=== PATIENT | female | born 1950 | race Caucasian/White ===

== ENCOUNTER 2019-08-19 15:56 | Emergency (ER) | payer MEDICARE ==
[~2019-08-19] VITALS: Ht 30.5 cm; Wt 55.0 kg
[~2019-08-19 15:56] MED LIST: ALB0.5UD IH; CITA20TA28 PO; CLOP75TA15 PO; COL100C PO; COR3.125T PO; CYAN-51 PO; CYCL-1 PO; DOL10T; FAMO20TA8 PO; GABA-341 PO; LOSA50TA64 PO; MAGN400C PO; OMEG500C PO; PRAV40TA65 PO; RANO500T3 PO
--- NOTE | 2019-08-19 16:16 | NUR ---
awaiting ed provider.
[2019-08-19] MEDS ORDERED: ibuprofen 200mg tablet PO ONE (16:35)
[2019-08-19] MEDS ORDERED: acetaminophen 325mg tablet PO ONE ×2 (16:35→16:45)
[2019-08-19 16:52] VITALS: BP 159/67
== END 2019-08-19 16:55 | disposition home or self-care (01) ==
LOC: ER 15:57
DX: M25.531 Pain in right wrist (principal); I25.10 Atherosclerotic heart disease of native coronary artery without angina pectoris; I10 Essential (primary) hypertension; J44.9 Chronic obstructive pulmonary disease, unspecified; M79.7 Fibromyalgia; Z95.1 Presence of aortocoronary bypass graft; Z90.710 Acquired absence of both cervix and uterus; Z98.890 Other specified postprocedural states; Z88.1 Allergy status to other antibiotic agents; Z88.8 Allergy status to other drugs, medicaments and biological substances; Z79.899 Other long term (current) drug therapy; W18.09XA Striking against other object with subsequent fall, initial encounter; Y93.01 Activity, walking, marching and hiking; Y92.89 Other specified places as the place of occurrence of the external cause; Y99.9 Unspecified external cause status
CPT/HCPCS: 29125; 73110; 99284

== ENCOUNTER 2020-01-10 09:25 | Inpatient (IN) | payer MEDICARE ==
[~2020-01-10] VITALS: Ht 154.9 cm; Wt 64.0 kg
[~2020-01-10 09:25] MED LIST changes: -DOL10T; +DOL10T PO
[2020-01-10] MEDS ORDERED: CefTRIAXone 2gm/D5W 50ml 50 ML IV ONE (09:40)
[2020-01-10] MEDS ORDERED: normal saline 1000ML IV soln IV ONE (09:40)
[2020-01-10] MEDS ORDERED: methylPREDNISolone sod succ 125mg/2ml vial IV ONE (09:40)
[2020-01-10] MEDS ORDERED: albuterol 2.5 MG/3 ML nebule NEB ONE (09:40)
--- NOTE | 2020-01-10 09:48 | NUR ---
RT AT BEDSIDE
[2020-01-10 09:50] LABS: BASOPHILS % (AUTO) 0.2 % (0-1); EOSINOPHILS % (AUTO) 0.1 % (0-6); HEMATOCRIT 43.4 % (35.0-45.0); HEMOGLOBIN 14.6 g/dl (12.0-16.0); LYMPHOCYTES # (AUTO) 0.6 X10'3 (1.1-4.8); LYMPHOCYTES % (AUTO) 7.9 % (21-51); MEAN CORPUSCULAR HEMOGLOBIN 31.7 PG (27.0-31.0); MEAN CORPUSCULAR HGB CONC 33.6 g/dL (33.0-36.5); MEAN CORPUSCULAR VOLUME 94.1 FL (78-98); MEAN PLATELET VOLUME 8.9 FL (7.4-10.4); MONOCYTES # (AUTO) 0.4 X10'3 (0-0.9); MONOCYTES % (AUTO) 5.4 % (2-12); NEUTROPHILS # (AUTO) 6.6 X10'3 (1.8-7.7); NEUTROPHILS % (AUTO) 86.4 % (42-75); PLATELET COUNT 102 X10'3 (140-440); RED BLOOD COUNT 4.61 X10'6 (4.20-5.60); RED CELL DISTRIBUTION WIDTH 13.2 % (11.5-14.5); WHITE BLOOD COUNT 7.6 X10'3 (4.5-11.0)
[2020-01-10 10:12] LABS: ALANINE AMINOTRANSFERASE 34 U/L (12-78); ALBUMIN 3.4 G/DL (3.4-5.0); ALBUMIN/GLOBULIN RATIO 0.9 (1.1-1.5); ALKALINE PHOSPHATASE 106 IU/L (46-116); ANION GAP 6 (8-16); ASPARTATE AMINO TRANSFERASE 36 U/L (10-37); BILIRUBIN,TOTAL 0.6 MG/DL (0.1-1.0); BLOOD UREA NITROGEN 13 MG/DL (7-18); BUN/CREATININE RATIO 14.6 (6.6-38.0); CALCIUM 9.1 MG/DL (8.5-10.1); CHLORIDE 105 MMOL/L (99-107); CREATININE 0.89 MG/DL (0.40-0.90); GLUCOSE 137 MG/DL (70-104); POTASSIUM 4.1 MMOL/L (3.5-5.1); SODIUM 140 MMOL/L (135-145); TOTAL CARBON DIOXIDE 28.8 MMOL/L (24-32); TOTAL PROTEIN 7.1 G/DL (6.4-8.2); eGFR 62 ML/MIN
[2020-01-10] MEDS ORDERED: ipratropium/albuterol 3ml nebule NEB ONE (10:55)
[2020-01-10] MEDS ORDERED: MONT10TA26 PO (13:19)
[2020-01-10] MEDS ORDERED: CARV25TA2 PO (13:19)
[2020-01-10] MEDS ORDERED: GABA-532 PO (13:19)
[2020-01-10] MEDS ORDERED: LOSA25TA41 PO (13:19)
[2020-01-10] MEDS ORDERED: DOCU250C40 PO (13:19)
[2020-01-10] MEDS ORDERED: ISOS60TA4 PO (13:19)
[2020-01-10] MEDS ORDERED: ASPI-1053 PO (13:19)
[2020-01-10] MEDS ORDERED: LOVA40TA2 PO (13:19)
[2020-01-10] MEDS ORDERED: ondansetron/PF 4mg/2ml inj IV PRN (13:45)
[2020-01-10] MEDS ORDERED: magnesium hydroxide 30ml (MOM) UD suspension PO PRN (13:45)
[2020-01-10] MEDS ORDERED: acetaminophen 325mg tablet PO PRN (13:45)
[2020-01-10] MEDS ORDERED: mag hydrox/Alum hydrox/simeth 30ml oral suspension PO PRN (13:45)
[2020-01-10] MEDS: methylPREDNISolone sod succ 125mg/2ml vial IV SCH ×2 (14:14→19:47)
[2020-01-10 15:52] VITALS: BP 160/64
--- NOTE | 2020-01-10 15:54 | NUR ---
Received report from NIDIA Hendricks. Patient arrived to floor. VSS. no current complaints.
[2020-01-10] MEDS: ipratropium/albuterol 3ml nebule NEB SCH ×3 (16:34→23:00)
--- NOTE | 2020-01-10 17:47 | NUR ---
PAGER ID: [phone] MESSAGE: Diane Partida : please address home medications. patient says she takes protonix PO daily and is needing it now. thank you!
--- NOTE | 2020-01-10 18:30 | NUR ---
Patient in room [facility]. I have received report from Ines JAOCB and had the opportunity to ask questions and assume patient care.
--- NOTE | 2020-01-10 18:35 | NUR ---
Problems reprioritized. Patient report given, questions answered & plan of care reviewed with NIDIA HOUSE.
[2020-01-10] MEDS: lactobacillus rhamnosus 10,000 MMU CELLS/CAPSULE PO SCH (19:45)
[2020-01-10] MEDS: magnesium oxide 400mg tablet PO SCH (19:45)
[2020-01-10] MEDS: carVEDilol 12.5mg tablet PO SCH (19:48)
[2020-01-10 20:00] VITALS: BP 160/56
[2020-01-10] MEDS: heparin, porcine 5000 units/ml vial SQ SCH (20:00)
[2020-01-10] MEDS: docusate sod 250mg capsule PO SCH (21:06)
[2020-01-10] MEDS: OMEGA-3/DHA/EPA/FISH OIL 1 EACH CAPSULE.DR PO SCH (21:06)
[2020-01-10] MEDS: methadone 5mg tablet PO SCH (21:07)
[2020-01-10] MEDS: gabapentin 300mg capsule PO SCH (21:09)
[2020-01-10] MEDS: azithromycin 250mg tablet PO SCH (21:09)
[2020-01-11] VITALS: BP 142/60
[2020-01-11] MEDS: methylPREDNISolone sod succ 125mg/2ml vial IV SCH ×4 (02:08→20:29)
[2020-01-11] MEDS: ipratropium/albuterol 3ml nebule NEB SCH ×6 (03:54→23:01)
[2020-01-11 05:27] LABS: BASOPHILS % (AUTO) 0.1 % (0-1); EOSINOPHILS % (AUTO) 0 % (0-6); HEMATOCRIT 41.6 % (35.0-45.0); HEMOGLOBIN 13.9 g/dl (12.0-16.0); LYMPHOCYTES # (AUTO) 0.6 X10'3 (1.1-4.8); LYMPHOCYTES % (AUTO) 9.1 % (21-51); MEAN CORPUSCULAR HEMOGLOBIN 31.4 PG (27.0-31.0); MEAN CORPUSCULAR HGB CONC 33.3 g/dL (33.0-36.5); MEAN CORPUSCULAR VOLUME 94.5 FL (78-98); MEAN PLATELET VOLUME 9.5 FL (7.4-10.4); MONOCYTES # (AUTO) 0.2 X10'3 (0-0.9); MONOCYTES % (AUTO) 2.4 % (2-12); NEUTROPHILS # (AUTO) 6.1 X10'3 (1.8-7.7); NEUTROPHILS % (AUTO) 88.4 % (42-75); PLATELET COUNT 110 X10'3 (140-440); RED BLOOD COUNT 4.41 X10'6 (4.20-5.60); RED CELL DISTRIBUTION WIDTH 13.3 % (11.5-14.5); WHITE BLOOD COUNT 6.9 X10'3 (4.5-11.0)
[2020-01-11 05:59] LABS: ALBUMIN 2.9 G/DL (3.4-5.0); ANION GAP 6 (8-16); BLOOD UREA NITROGEN 12 MG/DL (7-18); BUN/CREATININE RATIO 17.1 (6.6-38.0); CALCIUM 8.5 MG/DL (8.5-10.1); CHLORIDE 106 MMOL/L (99-107); GLUCOSE 164 MG/DL (70-104); POTASSIUM 3.9 MMOL/L (3.5-5.1); SODIUM 140 MMOL/L (135-145); TOTAL CARBON DIOXIDE 28.1 MMOL/L (24-32); eGFR 82 ML/MIN
--- NOTE | 2020-01-11 06:28 | NUR ---
Problems reprioritized. Patient report given, questions answered & plan of care reviewed with Daxa JACOB.
[2020-01-11 07:45] VITALS: BP 153/60
[2020-01-11] MEDS: CefTRIAXone 2gm/D5W 50ml 50 ML IV SCH (07:47)
[2020-01-11] MEDS: aspirin 81mg tab.chew PO SCH (07:47)
[2020-01-11] MEDS: docusate sod 250mg capsule PO SCH ×2 (07:48→20:35)
[2020-01-11] MEDS: citalopram 20mg tablet PO SCH (07:48)
[2020-01-11] MEDS: carVEDilol 12.5mg tablet PO SCH ×2 (07:48→20:35)
[2020-01-11] MEDS: losartan 25mg tablet PO SCH (07:50)
[2020-01-11] MEDS: lactobacillus rhamnosus 10,000 MMU CELLS/CAPSULE PO SCH ×2 (07:51→20:35)
[2020-01-11] MEDS: OMEGA-3/DHA/EPA/FISH OIL 1 EACH CAPSULE.DR PO SCH ×2 (07:51→20:35)
[2020-01-11] MEDS: atorvastatin 10mg tablet PO SCH (07:52)
[2020-01-11] MEDS: clopidogrel 75mg tablet PO SCH (07:53)
[2020-01-11] MEDS: magnesium oxide 400mg tablet PO SCH ×2 (07:53→20:35)
[2020-01-11] MEDS: montelukast 10mg tablet PO SCH (07:54)
[2020-01-11] MEDS: azithromycin 250mg tablet PO SCH (07:55)
[2020-01-11] MEDS: pravastatin 40mg tablet PO SCH (07:56)
[2020-01-11] MEDS: gabapentin 300mg capsule PO SCH ×2 (08:00→13:00)
[2020-01-11] MEDS: methadone 5mg tablet PO SCH ×2 (08:00→20:34)
[2020-01-11] MEDS: heparin, porcine 5000 units/ml vial SQ SCH ×2 (08:00→20:00)
[2020-01-11] MEDS: isosorbide dinitrate 30mg tablet PO SCH ×2 (08:17→20:35)
[2020-01-11 11:00] VITALS: BP 115/92
--- NOTE | 2020-01-11 12:10 | NUR ---
Patient in room [facility]. I have received report from SN Kedar and had the opportunity to ask questions and assume patient care.
[2020-01-11] MEDS ORDERED: pantoprazole 40mg Tablet.DR PO ONE (12:45)
--- NOTE | 2020-01-11 13:15 | NUR ---
Spoke with Dr. Bond office staff regarding patients home medications. Currently ordered is 600mg Gabapentin PO TID and Methadone 5mg PO BID. Patient states she takes "1800mg Gabapentin PO at bedtime along with Methadone 10mg PO at bedtime, with none throughout the day or morning". I confirmed with Dr. Bond office staff that patient does in fact take 1800mg Gabapentin qHS but the Methadone is ordered 5mg PO BID. Discussed this with Dr. Hubbard who agreed to change Gabapentin order to correlate with Dr Bond's order, and also wants to keep Methadone as is to correlate with Dr Bond's orders as well.
--- NOTE | 2020-01-11 15:43 | NUR ---
Student documentation: I have reviewed all interventions, assessments performed and documented by Kathy DUMONT.
[2020-01-11 17:30] LABS: ABG BASE EXCESS 0.8 mmol/L (-2.0-3.0); ABG HCO3 24.2 mmol/L (22.0-26.0); ABG PCO2 (T) 34.8 mmHg (35.0-45.0); ABG PO2 (T) 81.1 mmHg (83-108); FCOHb 0.2 % (0.5-1.5); FLOW 3 L/min; FO2Hb 95.8 % (94-100); TOTAL HEMOGLOBIN 13.3 G/dl (12.0-16.0)
--- NOTE | 2020-01-11 18:00 | NUR ---
Patient in room [facility]. I have received report from Daxa JACOB and had the opportunity to ask questions and assume patient care.
--- NOTE | 2020-01-11 18:14 | NUR ---
Problems reprioritized. Patient report given, questions answered & plan of care reviewed with NIDIA Verma.
[2020-01-11 20:00] VITALS: BP 160/68
[2020-01-11] MEDS ORDERED: gabapentin 300mg capsule PO SCH (21:00)
[2020-01-12] VITALS: BP 132/53
[2020-01-12] MEDS: ipratropium/albuterol 3ml nebule NEB SCH ×3 (03:00→11:16)
[2020-01-12] MEDS: methylPREDNISolone sod succ 125mg/2ml vial IV SCH ×3 (03:14→14:00)
[2020-01-12 05:45] LABS: BASOPHILS % (AUTO) 0 % (0-1); EOSINOPHILS % (AUTO) 0 % (0-6); HEMATOCRIT 37.7 % (35.0-45.0); HEMOGLOBIN 12.8 g/dl (12.0-16.0); LYMPHOCYTES # (AUTO) 0.9 X10'3 (1.1-4.8); LYMPHOCYTES % (AUTO) 8.6 % (21-51); MEAN CORPUSCULAR HEMOGLOBIN 32.1 PG (27.0-31.0); MEAN CORPUSCULAR VOLUME 94.4 FL (78-98); MEAN PLATELET VOLUME 9.6 FL (7.4-10.4); MONOCYTES # (AUTO) 0.4 X10'3 (0-0.9); MONOCYTES % (AUTO) 3.9 % (2-12); NEUTROPHILS # (AUTO) 8.9 X10'3 (1.8-7.7); NEUTROPHILS % (AUTO) 87.5 % (42-75); PLATELET COUNT 117 X10'3 (140-440); RED BLOOD COUNT 3.99 X10'6 (4.20-5.60); WHITE BLOOD COUNT 10.2 X10'3 (4.5-11.0)
[2020-01-12 05:55] LABS: ALBUMIN 2.7 G/DL (3.4-5.0); ANION GAP 5 (8-16); BLOOD UREA NITROGEN 18 MG/DL (7-18); BUN/CREATININE RATIO 25.4 (6.6-38.0); CALCIUM 8.8 MG/DL (8.5-10.1); CHLORIDE 108 MMOL/L (99-107); CREATININE 0.71 MG/DL (0.40-0.90); GLUCOSE 154 MG/DL (70-104); POTASSIUM 4.1 MMOL/L (3.5-5.1); SODIUM 141 MMOL/L (135-145); eGFR 81 ML/MIN
--- NOTE | 2020-01-12 06:18 | NUR ---
Patient in room [facility]. I have received report from NIDIA Verma and had the opportunity to ask questions and assume patient care.
--- NOTE | 2020-01-12 06:25 | NUR ---
Problems reprioritized. Patient report given, questions answered & plan of care reviewed with Paty JACOB.
[2020-01-12] MEDS ORDERED: pantoprazole 40mg Tablet.DR PO SCH (07:30)
[2020-01-12] MEDS: isosorbide dinitrate 30mg tablet PO SCH (07:49)
[2020-01-12] MEDS: clopidogrel 75mg tablet PO SCH (07:49)
[2020-01-12] MEDS: citalopram 20mg tablet PO SCH (07:49)
[2020-01-12] MEDS: losartan 25mg tablet PO SCH (07:50)
[2020-01-12] MEDS: methadone 5mg tablet PO SCH (07:51)
[2020-01-12] MEDS: azithromycin 250mg tablet PO SCH (07:51)
[2020-01-12] MEDS: aspirin 81mg tab.chew PO SCH (07:51)
[2020-01-12] MEDS: montelukast 10mg tablet PO SCH (07:51)
[2020-01-12] MEDS: atorvastatin 10mg tablet PO SCH (07:51)
[2020-01-12] MEDS: carVEDilol 12.5mg tablet PO SCH (07:51)
[2020-01-12] MEDS: magnesium oxide 400mg tablet PO SCH (07:52)
[2020-01-12] MEDS: OMEGA-3/DHA/EPA/FISH OIL 1 EACH CAPSULE.DR PO SCH (07:52)
[2020-01-12] MEDS: heparin, porcine 5000 units/ml vial SQ SCH (07:58)
[2020-01-12] MEDS: CefTRIAXone 2gm/D5W 50ml 50 ML IV SCH (07:59)
[2020-01-12 08:00] VITALS: BP 146/56
[2020-01-12] MEDS: docusate sod 250mg capsule PO SCH (08:00)
[2020-01-12] MEDS: pravastatin 40mg tablet PO SCH (08:20)
[2020-01-12] MEDS: lactobacillus rhamnosus 10,000 MMU CELLS/CAPSULE PO SCH (08:20)
[2020-01-12] MEDS ORDERED: IPRA3AMP9 NEB (11:59)
[2020-01-12 12:00] VITALS: BP 115/50
[2020-01-12] MEDS ORDERED: ALBU8.5H8 IH (12:00)
--- NOTE | 2020-01-12 14:55 | NUR ---
Pt D/C home @ [address] Hubbard in stable conditions. IV and Tele removed. medication and discharge instructions give to pt. Pt was escorted to front lobby on [address]. Left the hospital via private vehicle accompanied by friend.
== END 2020-01-12 13:20 | disposition home or self-care (01) | DRG 193 ==
LOC: ER 09:25 → ED HOLD 13:43 → SUR 3N 15:39
PROVIDERS: ADMIT Family Medicine; ATTEND Internal Medicine
DX: J18.9 Pneumonia, unspecified organism (principal); J96.01 Acute respiratory failure with hypoxia; J44.1 Chronic obstructive pulmonary disease with (acute) exacerbation; J44.0 Chronic obstructive pulmonary disease with (acute) lower respiratory infection; I10 Essential (primary) hypertension; I25.10 Atherosclerotic heart disease of native coronary artery without angina pectoris; K21.9 Gastro-esophageal reflux disease without esophagitis; M79.7 Fibromyalgia; Z87.891 Personal history of nicotine dependence; Z90.710 Acquired absence of both cervix and uterus; Z95.1 Presence of aortocoronary bypass graft; Z96.643 Presence of artificial hip joint, bilateral; Z88.1 Allergy status to other antibiotic agents; Z79.899 Other long term (current) drug therapy; Z90.49 Acquired absence of other specified parts of digestive tract
CPT/HCPCS: 36415; 36600; 71045; 80048; 80053; 82803; 83605; 84145; 85018; 85025; 87040; 87081; 87502; 87503; 93005; 94640; 94760; 96365; 96367; 99291; G0378; J0696; J2930; J7030

== ENCOUNTER 2020-04-12 11:09 | Emergency (ER) | payer MEDICARE ==
[~2020-04-12] VITALS: Ht 154.9 cm; Wt 63.2 kg
[~2020-04-12 11:09] MED LIST changes: -ALB0.5UD IH; +ALBU8.5H8 IH; +ASPI-1053 PO; +CARV25TA2 PO; -COL100C PO; -COR3.125T PO; -CYAN-51 PO; -CYCL-1 PO; +DOCU250C40 PO; -FAMO20TA8 PO; -GABA-341 PO; +GABA-532 PO; +IPRA3AMP9 NEB; +ISOS60TA4 PO; +LOSA25TA41 PO; -LOSA50TA64 PO; +LOVA40TA2 PO; +MONT10TA26 PO; -RANO500T3 PO
[2020-04-12] MEDS ORDERED: HYDROcodone/acetaminophen 5mg/325mg tablet PO ONE (13:35)
--- NOTE | 2020-04-12 14:46 | NUR ---
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
--- NOTE | 2020-04-12 14:57 | NUR ---
pt returns from ct
[2020-04-12] MEDS ORDERED: LIDO700A32 TOP (16:05)
[2020-04-12 16:57] VITALS: BP 121/55
== END 2020-04-12 17:01 | disposition home or self-care (01) ==
LOC: ER 11:10
DX: S22.31XA Fracture of one rib, right side, initial encounter for closed fracture (principal); R07.81 Pleurodynia; I25.10 Atherosclerotic heart disease of native coronary artery without angina pectoris; I10 Essential (primary) hypertension; J44.9 Chronic obstructive pulmonary disease, unspecified; Z90.710 Acquired absence of both cervix and uterus; Z98.890 Other specified postprocedural states; Z88.1 Allergy status to other antibiotic agents; Z79.82 Long term (current) use of aspirin; Z79.899 Other long term (current) drug therapy; W18.39XA Other fall on same level, initial encounter; Y93.89 Activity, other specified; Y92.098 Other place in other non-institutional residence as the place of occurrence of the external cause; Y99.8 Other external cause status
CPT/HCPCS: 71101; 71250; 99285

== ENCOUNTER 2021-10-15 09:34 | Day surgery (SDC) | payer MEDICARE ==
[2021-10-14 15:01] LABS: BASOPHILS % (AUTO) 0.7 % (0-1); EOSINOPHILS # (AUTO) 0.1 X10'3 (0-0.9); EOSINOPHILS % (AUTO) 2.3 % (0-6); HEMATOCRIT 39.5 % (35.0-45.0); LYMPHOCYTES # (AUTO) 1.1 X10'3 (1.1-4.8); LYMPHOCYTES % (AUTO) 21.7 % (21-51); MEAN CORPUSCULAR HEMOGLOBIN 31.1 PG (27.0-31.0); MEAN CORPUSCULAR VOLUME 94.2 FL (78-98); MEAN PLATELET VOLUME 9.5 FL (7.4-10.4); MONOCYTES # (AUTO) 0.3 X10'3 (0-0.9); MONOCYTES % (AUTO) 7.1 % (2-12); NEUTROPHILS # (AUTO) 3.4 X10'3 (1.8-7.7); NEUTROPHILS % (AUTO) 68.2 % (42-75); PLATELET COUNT 159 X10'3 (140-440); RED CELL DISTRIBUTION WIDTH 13.2 % (11.5-14.5); WHITE BLOOD COUNT 4.9 X10'3 (4.5-11.0)
[2021-10-14 15:11] LABS: ALBUMIN 3.3 G/DL (3.4-5.0); ANION GAP 6 (8-16); BLOOD UREA NITROGEN 15 MG/DL (7-18); BUN/CREATININE RATIO 18.3 (6.6-38.0); CALCIUM 8.7 MG/DL (8.5-10.1); CHLORIDE 101 MMOL/L (99-107); CREATININE 0.82 MG/DL (0.40-0.90); GLUCOSE 103 MG/DL (70-104); POTASSIUM 4.3 MMOL/L (3.5-5.1); SODIUM 137 MMOL/L (135-145); TOTAL CARBON DIOXIDE 29.9 MMOL/L (24-32); eGFR 68 ML/MIN
[2021-10-14 15:13] LABS: PARTIAL THROMBOPLASTIN TIME 28 SECONDS (22-32)
[~2021-10-15] VITALS: Ht 152.4 cm; Wt 63.7 kg
[2021-10-15] VITALS (12 sets, daily range): BP systolic 98–178; BP diastolic 40–102
[~2021-10-15 09:34] MED LIST changes: +ALBU8.5H17 IH; -ALBU8.5H8 IH; -ISOS60TA4 PO; +ISOS60TA71 PO; +LIDO700A32 TOP; +MONT-40 PO; -MONT10TA26 PO
[2021-10-15] MEDS ORDERED: normal saline 1,000 ML IV SCH (09:50)
[2021-10-15] MEDS ORDERED: LORazepam 0.5 MG tablet PO PRN (09:50)
[2021-10-15] MEDS ORDERED: diphenhydrAMINE 25mg capsule PO PRN (09:50)
[2021-10-15] MEDS ORDERED: GABA600T13 PO (10:28)
[2021-10-15] MEDS ORDERED: LIDOcaine/PRILOcaine 5gm cream TP ONE (10:35)
[2021-10-15] MEDS ORDERED: PANT20TA18 PO (11:21)
[2021-10-15] MEDS ORDERED: FLUT1DIS INH (11:21)
[2021-10-15] MEDS ORDERED: ROSU40TA PO (11:21)
[2021-10-15] MEDS ORDERED: nitroGLYCERIN-Tridil 50MG/D5W 250 ML IV ONE (12:41)
[2021-10-15] MEDS ORDERED: iohexol 350 MG/ML 50ML vial IV ONE ×2 (12:41→13:39)
[2021-10-15] MEDS ORDERED: verapamil 2.5 mg/ml inj IV ONE (12:41)
[2021-10-15] MEDS ORDERED: LIDOcaine 1% (10mg/ml)w/preservative injection 20ml MDV ONE (12:41)
[2021-10-15] MEDS ORDERED: fentaNYL/PF 50MCG/1 ML 2ML syringe ONE (12:41)
[2021-10-15] MEDS ORDERED: heparin 1,000unit/ml 10ml vial 10 ML ONE (12:41)
[2021-10-15] MEDS ORDERED: midazolam 1 mg/ML 2ml injection ONE (12:41)
[2021-10-15] MEDS ORDERED: iohexol 350MG/ML 100ml bottle IV ONE (12:42)
[2021-10-15] MEDS ORDERED: normal saline 1000ml 1,000 ML IV SCH (14:35)
[2021-10-15] MEDS ORDERED: pneumococcal 23-VAL P-sac vacc 25 mcg/0.5ml vial IMVAC ONE (14:50)
== END 2021-10-15 19:00 | disposition home or self-care (01) ==
LOC: SSTAY O 09:34
PROVIDERS: ATTEND Internal Medicine Cardiovascular Disease
DX: R94.39 Abnormal result of other cardiovascular function study (principal); I25.810 Atherosclerosis of coronary artery bypass graft(s) without angina pectoris; I25.82 Chronic total occlusion of coronary artery; I10 Essential (primary) hypertension; E78.49 Other hyperlipidemia; J44.9 Chronic obstructive pulmonary disease, unspecified; Z95.1 Presence of aortocoronary bypass graft; Z79.01 Long term (current) use of anticoagulants; Z79.899 Other long term (current) drug therapy; Z79.82 Long term (current) use of aspirin; M19.90 Unspecified osteoarthritis, unspecified site; M81.0 Age-related osteoporosis without current pathological fracture; Z90.49 Acquired absence of other specified parts of digestive tract; Z98.890 Other specified postprocedural states; Z90.710 Acquired absence of both cervix and uterus; Z80.0 Family history of malignant neoplasm of digestive organs; Z83.3 Family history of diabetes mellitus
CPT/HCPCS: 36415; 76937; 80048; 85025; 85610; 85730; 93005; 93459; 93567; 99152; 99153; C1769; C1894; J1644; J2250; J3010; J3490; J7030; Q0163; Q9967; A4620; A5120

== ENCOUNTER 2022-11-15 13:11 | Emergency (ER) | payer MEDICARE ==
[~2022-11-15] VITALS: Ht 152.4 cm; Wt 59.1 kg
[~2022-11-15 13:11] MED LIST changes: -ALBU8.5H17 IH; +FLUT1DIS INH; -GABA-532 PO; +GABA600T13 PO; -IPRA3AMP9 NEB; -LIDO700A32 TOP; -LOVA40TA2 PO; +PANT20TA18 PO; -PRAV40TA65 PO; +ROSU40TA PO
[2022-11-15 13:14] VITALS: BP 170/74
[2022-11-15] MEDS ORDERED: ORPH100T2 PO (14:40)
[2022-11-15] MEDS ORDERED: orphenadrine citrate 60mg/2ml inj. IM ONE (14:40)
== END 2022-11-15 15:22 | disposition home or self-care (01) ==
LOC: ER 13:11
DX: S29.012A Strain of muscle and tendon of back wall of thorax, initial encounter (principal); I25.10 Atherosclerotic heart disease of native coronary artery without angina pectoris; I10 Essential (primary) hypertension; J44.9 Chronic obstructive pulmonary disease, unspecified; M79.7 Fibromyalgia; Z90.710 Acquired absence of both cervix and uterus; Z95.1 Presence of aortocoronary bypass graft; Z98.890 Other specified postprocedural states; Z88.8 Allergy status to other drugs, medicaments and biological substances; Z79.899 Other long term (current) drug therapy; Z79.82 Long term (current) use of aspirin; X58.XXXA Exposure to other specified factors, initial encounter; Y93.89 Activity, other specified; Y92.89 Other specified places as the place of occurrence of the external cause; Y99.8 Other external cause status
CPT/HCPCS: 96372; 99283; J2360